=== PATIENT | female | born 2000 | race Caucasian/White ===

== ENCOUNTER 2020-11-13 12:49 | Emergency (ER) | payer BC ==
[2020-11-13] MEDS ORDERED: METOCLOPRAMIDE 5 MG/ML 2 ML VIAL IVP STA (14:03)
--- NOTE | 2020-11-13 14:27 | ED ---
General Adult HPI - General Chief complaint: Dizziness Stated complaint: Dizziness Time Seen by Provider: 11/13/20 14:03 Source: patient Mode of arrival: ambulatory Limitations: no limitations - History of Present Illness Initial comments: Dictation was produced using [employer] dictation software. please excuse any grammatical, word or spelling errors. Chief Complaint: 19-year-old female with chronic history of vertigo presents with vertigo episode History of Present Illness: Patient is a 19-year-old female she was diagnosed with vertigo at the age of 11. Patient reports that she has frequent episodes of vertigo. She states she gets them often however they don't usually last this long. Patient states that her vertiginous symptoms last for several minutes. She would have maybe 3 or 4 episodes in a year. She states that she is having a vertigo episode. She states that spent ongoing for the last 3-4 days. Patient has been having some nasal congestion but no rhinorrhea or sore throat or cough. Is not sure she's having a sinus infection. Denies any fevers. No numbness and paresthesias to the arms or legs. No weakness to the extremity. Denies any ear ringing. No hearing loss. She reports that her symptoms are worse in the morning especially when she stands up. She states that her symptoms improve throughout the day. It's worse whenever she turns her head quickly. The ROS documented in this emergency department record has been reviewed and confirmed by me. Those systems with pertinent positive or negative responses have been documented in the HPI. All other systems are other negative and/or noncontributory. PHYSICAL EXAM: General Impression: Alert and oriented x3, not in acute distress HEENT: Normocephalic atraumatic, extra-ocular movements intact, pupils equal and reactive to light bilaterally, mucous membranes moist. Cardiovascular: Heart regular rate and rhythm Chest: Able to complete full sentences, no retractions, no tachypnea Abdomen: abdomen soft, non-tender, non-distended, no organomegaly Musculoskeletal: Pulses present and equal in all extremities, no peripheral edema Motor: no focal deficits noted Neurological: CN II-XII grossly intact, no focal motor or sensory deficits no radha, normal gait, no extremity ataxia, normal heel-to-toe walking, normal heel walking and normal toe walking, patient does have direction changing nystagmus, negative test of skew, negative head impulse test Skin: Intact with no visualized rashes Psych: Normal affect and mood ED course: 19-year-old female presents emergency department for vertigo. Patient has chronic history of vertigo diagnosed since age of 11. She has frequent episodes but her episodes usually lasts more than a day. She did have an episode for 2-3 days. Vital signs upon arrival are within acceptable limits. Physical examination is normal at bedside. She does have some neck direction changing nystagmus but she has no other abnormal findings on neurologic exam. Patient is ambulatory with minimal complications. EKG interpretation: Ventricular rate 91, normal sinus rhythm, NH interval 140, QRS 82, QTc 457. No NH prolongation, no QTC prolongation, no ST or T-wave changes noted. Overall, this EKG is unremarkable Laboratory evaluation obtained. Wound looks it is 11.3 likely secondary to stress. Metabolic panel and urinalysis is negative. Patient is not . Patient reevaluated after been given Reglan. At 3:30 at the bedside patient stable medical condition. She continues to be well-appearing. She is told that she needs to follow up with her primary care doctor regarding her vertiginous symptoms. Given the patient's well-appearing has normal neurologic exam and her vertigo is chronic, patient is amenable for discharge. She is given follow-up with ENT and told to follow-up with her primary care doctor for neurology referral. Return precautions discussed. - Related Data Home Medications Medication Instructions Recorded Confirmed Meclizine HCl 25 mg PO DAILY PRN 11/13/20 11/13/20 Previous Rx's Medication Instructions Recorded Meclizine [Antivert] 25 mg PO TID PRN #15 tab 11/13/20 Allergies Allergy/AdvReac Type Severity Reaction Status Date / Time No Known Allergies Allergy Verified 11/13/20 15:08 Review of Systems ROS Statement: Those systems with pertinent positive or pertinent negative responses have been documented in the HPI. ROS Other: All systems not noted in ROS Statement are negative. Past Medical History Past Medical History: Seizure Disorder History of Any Multi-Drug Resistant Organisms: None Reported Past Surgical History: No Surgical Hx Reported Past Psychological History: No Psychological Hx Reported Smoking Status: Vaper Past Alcohol Use History: None Reported Past Drug Use History: None Reported General Exam Limitations: no limitations Course Vital Signs 11/13/20 13:19 Temperature 97.9 F Pulse Rate 79 Respiratory 16 Rate Blood Pressure 123/78 O2 Sat by Pulse 100 Oximetry Medical Decision Making - Lab Data Result diagrams: 11/13/20 14:40 11/13/20 14:40 Lab Results 11/13/20 11/13/20 11/13/20 Range/Units 14:40 14:40 14:40 WBC 11.3 H (4.0-11.0) k/uL RBC 4.73 (3.80-5.40) m/uL Hgb 14.4 (11.4-16.0) gm/dL Hct 43.2 (34.0-46.0) % MCV 91.5 (80.0-100.0) fL MCH 30.5 (25.0-35.0) pg MCHC 33.3 (31.0-37.0) g/dL RDW 11.6 (11.5-15.5) % Plt Count 322 (150-450) k/uL MPV 6.9 Neutrophils % 75 % Lymphocytes % 19 % Monocytes % 3 % Eosinophils % 1 % Basophils % 0 % Neutrophils # 8.5 H (1.3-7.7) k/uL Lymphocytes # 2.1 (1.0-4.8) k/uL Monocytes # 0.4 (0-1.0) k/uL Eosinophils # 0.2 (0-0.7) k/uL Basophils # 0.0 (0-0.2) k/uL Sodium (137-145) mmol/L Potassium (3.5-5.1) mmol/L Chloride (98-107) mmol/L Carbon Dioxide (22-30) mmol/L Anion Gap mmol/L BUN (7-17) mg/dL Creatinine (0.52-1.04) mg/dL Est GFR (CKD-EPI)AfAm (>60 ml/min/1.73 sqM) Est GFR (CKD-EPI)NonAf (>60 ml/min/1.73 sqM) Glucose (74-99) mg/dL Calcium (8.4-10.2) mg/dL Magnesium (1.6-2.3) mg/dL Urine Color Light Yellow Urine Appearance Clear (Clear) Urine pH 7.5 (5.0-8.0) Ur Specific [place] 1.007 (1.001-1.035) Urine Protein Negative (Negative) Urine Glucose (UA) Negative (Negative) Urine Ketones Negative (Negative) Urine Blood Moderate H (Negative) Urine Nitrite Negative (Negative) Urine Bilirubin Negative (Negative) Urine Urobilinogen <2.0 (<2.0) mg/dL Ur Leukocyte Esterase Negative (Negative) Urine RBC 18 H (0-5) /hpf Urine WBC <1 (0-5) /hpf Urine HCG, Qual Not Detected (Not Detectd) 11/13/20 Range/Units 14:40 WBC (4.0-11.0) k/uL RBC (3.80-5.40) m/uL Hgb (11.4-16.0) gm/dL Hct (34.0-46.0) % MCV (80.0-100.0) fL MCH (25.0-35.0) pg MCHC (31.0-37.0) g/dL RDW (11.5-15.5) % Plt Count (150-450) k/uL MPV Neutrophils % % Lymphocytes % % Monocytes % % Eosinophils % % Basophils % % Neutrophils # (1.3-7.7) k/uL Lymphocytes # (1.0-4.8) k/uL Monocytes # (0-1.0) k/uL Eosinophils # (0-0.7) k/uL Basophils # (0-0.2) k/uL Sodium 139 (137-145) mmol/L Potassium 3.9 (3.5-5.1) mmol/L Chloride 105 (98-107) mmol/L Carbon Dioxide 24 (22-30) mmol/L Anion Gap 10 mmol/L BUN 8 (7-17) mg/dL Creatinine 0.73 (0.52-1.04) mg/dL Est GFR (CKD-EPI)AfAm >90 (>60 ml/min/1.73 sqM) Est GFR (CKD-EPI)NonAf >90 (>60 ml/min/1.73 sqM) Glucose 99 (74-99) mg/dL Calcium 9.6 (8.4-10.2) mg/dL Magnesium 1.9 (1.6-2.3) mg/dL Urine Color Urine Appearance (Clear) Urine pH (5.0-8.0) Ur Specific [place] (1.001-1.035) Urine Protein (Negative) Urine Glucose (UA) (Negative) Urine Ketones (Negative) Urine Blood (Negative) Urine Nitrite (Negative) Urine Bilirubin (Negative) Urine Urobilinogen (<2.0) mg/dL Ur Leukocyte Esterase (Negative) Urine RBC (0-5) /hpf Urine WBC (0-5) /hpf Urine HCG, Qual (Not Detectd) Disposition Clinical Impression: Vertigo Disposition: HOME SELF-CARE Condition: Fair Instructions (If sedation given, give patient instructions): Vertigo (ED) Prescriptions: Meclizine [Antivert] 25 mg PO TID PRN #15 tab PRN Reason: dizziness Is patient prescribed a controlled substance at d/c from ED?: No Referrals: Jasen Keith MD [STAFF PHYSICIAN] - 1-2 days
[2020-11-13 14:58] LABS: Appearance,Urine Clear (Clear); Bilirubin,Urine Negative (Negative); Blood,Urine Moderate (Negative); Color,Urine Light Yellow; Glucose,Urine (UA) Negative (Negative); Ketones,Urine Negative (Negative); Leukocyte Esterase,Urine Negative (Negative); Nitrite,Urine Negative (Negative); PH, Urine 7.5 (5.0-8.0); Protein,Urine Negative (Negative); RBC,Urine 18 /hpf (0-5); Specific Gravity,Urine 1.007 (1.001-1.035); Urobilinogen,Urine <2.0 mg/dL (<2.0); WBC,Urine <1 /hpf (0-5)
[2020-11-13 15:03] LABS: Basophils % (A) 0 %; Eosinophils # (A) 0.2 k/uL (0-0.7); Eosinophils % (A) 1 %; HCT 43.2 % (34.0-46.0); HGB 14.4 gm/dL (11.4-16.0); Lymphocytes # (A) 2.1 k/uL (1.0-4.8); Lymphocytes % (A) 19 %; MCH 30.5 pg (25.0-35.0); MCHC 33.3 g/dL (31.0-37.0); MCV 91.5 fL (80.0-100.0); Mean Platelet Volume 6.9; Monocytes # (A) 0.4 k/uL (0-1.0); Monocytes % (A) 3 %; Neutrophils # (A) 8.5 k/uL (1.3-7.7); Neutrophils % (A) 75 %; Platelet Count 322 k/uL (150-450); RBC 4.73 m/uL (3.80-5.40); RDW 11.6 % (11.5-15.5); WBC 11.3 k/uL (4.0-11.0)
[2020-11-13 15:18] LABS: African American GFR (CKD) >90 (>60 ml/min/1.73 sqM); Anion Gap 10 mmol/L; Blood Urea Nitrogen 8 mg/dL (7-17); Calcium 9.6 mg/dL (8.4-10.2); Carbon Dioxide 24 mmol/L (22-30); Chloride 105 mmol/L (98-107); Glucose 99 mg/dL (74-99); Magnesium 1.9 mg/dL (1.6-2.3); Non-African American GFR(CKD) >90 (>60 ml/min/1.73 sqM); Potassium 3.9 mmol/L (3.5-5.1); Sodium 139 mmol/L (137-145)
[2020-11-13 15:53] VITALS: BP 120/77; PULSE 75; RESP 20; TEMP 97.8
== END 2020-11-13 15:56 | disposition home or self-care (01) ==
LOC: EC 12:49
DX: R42 Dizziness and giddiness (principal); F17.290 Nicotine dependence, other tobacco product, uncomplicated
CPT/HCPCS: 99284; 96374; 36415; 93005; 80048; 83735; 85025; 81001; 81025; J2765